=== PATIENT | female | born 1975 | race Caucasian/White ===

== ENCOUNTER → 2019-12-27 18:21 | Outpatient (CLI) | payer BC, SELFPAY ==
--- NOTE | ~2019-12-27 | MM_ITS ---
EXAMINATION: MM screening fred BI w diane HISTORY: Screening mammogram TECHNIQUE: Craniocaudal and mediolateral oblique 3-D tomosynthesis images were obtained and synthetic 2-D images were generated. CAD analysis was submitted and interpreted. COMPARISON: 08/06/2011 bilateral digital screening mammogram BREAST PARENCHYMAL COMPOSITION: The breasts are almost entirely fatty. FINDINGS: There is no evidence of suspicious mass, calcification, or architectural distortion to sugg est malignancy in either breast. There has been no suspicious interval change. IMPRESSION: 1. No mammographic evidence of malignancy. 2. Recommend routine screening mammography in one year. BI-RADS Category 1: Negative Reviewed, dictated and finalized at location A. 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
== END ==
PROVIDERS: PCP Family Medicine; Visit Provider Family Medicine
DX: Z12.31 Encounter for screening mammogram for malignant neoplasm of breast (principal)
CPT/HCPCS: 77063; 77067

== ENCOUNTER 2020-07-29 17:14 | Emergency (ER) | payer OTHER, BC, SELFPAY ==
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
[2020-07-29 17:23] VITALS: BP 140/83; PULSE 100; RESP 18; TEMP 36.5; O2SAT 97
[2020-07-29] MEDS: IBUPROFEN 600 MG TABLET PO (17:33)
[2020-07-29] MEDS: diazePAM 5 MG TABLET PO (17:33)
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
[2020-07-29 19:06] VITALS: BP 130/62; PULSE 78; RESP 18; O2SAT 99
== END 2020-07-29 19:08 | disposition home or self-care (01) ==
PROVIDERS: Emergency Provider Emergency Medicine; PCP Family Medicine
DX: S16.1XXA Strain of muscle, fascia and tendon at neck level, initial encounter (principal); S39.012A Strain of muscle, fascia and tendon of lower back, initial encounter; S86.911A Strain of unspecified muscle(s) and tendon(s) at lower leg level, right leg, initial encounter; S50.01XA Contusion of right elbow, initial encounter; V49.40XA Driver injured in collision with unspecified motor vehicles in traffic accident, initial encounter
CPT/HCPCS: 72125; 72128; 73080; 73590; 99284; A9270

== ENCOUNTER 2022-05-12 09:30 | Outpatient (CLI) | payer BC, SELFPAY ==
--- NOTE | ~2022-05-12 | MM_ITS ---
EXAMINATION: MM screening fred BI w diane HISTORY: Screening TECHNIQUE: Craniocaudal and mediolateral oblique 3-D tomosynthesis images were obtained and synthetic 2-D images were generated. CAD analysis was submitted and interpreted. COMPARISON: No prior mammogram is available for comparison at this institution. BREAST PARENCHYMAL COMPOSITION: Breast composed of scattered areas of fibroglandular density FINDINGS: There is a focal asymmetry lateral aspect of the left breast on CC view, not seen on prior examination. The right breast is stable without evidence for malignancy. IMPRESSION: 1. New left breast asymmetry. 2. Additional mammographic views and possible breast ultrasound are recommended. BI-RADS Category 0: Incomplete: Needs additional imaging evaluation. Reviewed, dictated and finalized at location A. IMPRESSION: 1. New left breast asymmetry. 2. Additional mammographic views and possible breast ultrasound are recommended . BI-RADS Category 0: Incomplete: Needs additional imaging evaluation.
== END 2022-05-12 09:31 | disposition home or self-care (01) ==
LOC: ANHIMG 09:32
PROVIDERS: PCP Family Medicine; Visit Provider Student in an Organized Health Care Education/Training Program
DX: Z12.31 Encounter for screening mammogram for malignant neoplasm of breast (principal); R92.8 Other abnormal and inconclusive findings on diagnostic imaging of breast
CPT/HCPCS: 77063; 77067

== ENCOUNTER 2022-05-17 14:00 | Outpatient (CLI) | payer BC, SELFPAY ==
--- NOTE | ~2022-05-17 | MMUS_ITS ---
EXAMINATION: MM diagnostic fred LT w diane, US breast LT limited HISTORY: New left breast asymmetry reported in the lateral aspect of 05/12/2022 craniocaudal screening view TECHNIQUE: Additional 3-D tomosynthesis images of the left breast were performed and synthetic 2-D im ages were generated. Rolled medial and rolled lateral craniocaudal views. CAD analysis was submitted and interpreted. High resolution targeted upper outer and lower-outer quadrant left breast ultrasound was performed. COMPARISON: 05/12/2022 bilateral screening mammogram FINDINGS: MAMMOGRAPHIC FINDINGS: No reproducible mass is evident on these supplemental mammographic views. The finding on the mammogram is most consistent with superimposed fibroglandular stroma. ULTRASOUND: Real-time imaging of the upper outer and lower-outer quadrants of the left breast confirms no evidenc e of suspicious mass or shadowing. IMPRESSION: 1. No mammographic evidence of malignancy 2. Routine annual mammographic screening is recommended. BI-RADS Category 1: Negative Reviewed, dictated and finalized at location A. IMPRESSION: 1. No mammographic evidence of malignancy 2. Routine annual mammographic screening is recommended. BI-RADS Category 1: Negative
== END 2022-05-17 14:01 | disposition home or self-care (01) ==
LOC: ANHIMG 14:01
PROVIDERS: PCP Family Medicine; Visit Provider Student in an Organized Health Care Education/Training Program
DX: R92.8 Other abnormal and inconclusive findings on diagnostic imaging of breast (principal)
CPT/HCPCS: 76642; 77061; 77065; G0279

== ENCOUNTER 2024-09-27 12:51 | Outpatient (CLI) | payer OTHER, SELFPAY ==
--- NOTE | ~2024-09-27 | MM_ITS ---
EXAMINATION: MM screening fred BI w diane HISTORY: Screening mammogram TECHNIQUE: Craniocaudal and mediolateral oblique 3-D tomosynthesis images were obtained and synthetic 2-D images were generated. CAD analysis was submitted and interpreted. COMPARISON: 05/12/2022, 12/27/2019 BREAST PARENCHYMAL COMPOSITION:Not Dense. The breasts are almost entirely fatty FINDINGS: No suspicious mass, calcification, or architectural distortion are identified in either jason ast to suggest malignancy. There has been no suspicious interval change. IMPRESSION: No mammographic evidence of malignancy. Recommend routine screening mammography in one year. BI-RADS Category 1: Negative Reviewed, dictated and finalized at location .
== END 2024-09-27 12:52 | disposition home or self-care (01) ==
LOC: MICIMG 12:51
PROVIDERS: PCP Family Medicine; Visit Provider Family Medicine
DX: Z12.31 Encounter for screening mammogram for malignant neoplasm of breast (principal)
CPT/HCPCS: 77063; 77067

== ENCOUNTER 2025-07-04 03:35 | Day surgery (SDC) | payer OTHER, SELFPAY ==
[2025-06-19 13:39] VITALS: BMI 29.0
--- OUTSIDE RECORDS SUMMARY | 2025-07-04 03:38 | XMS_ITS | Patient Health Record ---
Author Organization [facility] Address [address] [place], [place] [id number] Care Team Providers Care Estimator Name Role Phone Lenore Yang Unavailable Unavailable Reason For Referral No Information Medications Medication SIG (Take, Route, Frequency, Duration) Notes Start Date End Date Status erythromycin 250 MG Delayed Release Oral Capsule ORAL erythromycin 250 MG Delayed Release Oral CapsuleOriginal Medicationerythromycin 250 MG Delayed Release Oral Capsule *Reorder from [employer] for eRx and Interaction Alerts* 07/26/2016 Active Amoxicillin 500 MG Oral Tablet ORAL amoxicillin 500 MG Oral TabletOriginal Medicationamoxicillin 500 MG Oral Tablet *[facility] and Interaction Alert[facility]* 07/26/2016 Active Plan Of Treatment No Information Insurance Providers Payer Name Payer Address Payer Phone Subscriber Number Group Number Insured Name Patient Relationship to Insured Coverage Start Date Coverage End Date [facility] ([facility]) [address] [place], [place] [phone] [id number] LUDIN FREY Self - patient is the insured
[2025-07-04 09:07] VITALS: BP 115/69; PULSE 90; RESP 15; TEMP 36.1; O2SAT 100; BMI 30.1
[2025-07-04] MEDS: LACTATED RINGERS 1,000 ML 150 ML IV CONT (09:20)
--- NOTE | 2025-07-04 09:37 | WPDANESEPPF ---
Anes - Initial Pre Proc Eval Procedure: Operation Date: 07/04/25 10:00 Proposed Procedures p Screening Colonoscopy - Ollie Sahu MD Date/Time: 07/04/25 09:37 Surgeon: Ollie Sahu MD Pre Op Diagnosis: Screening Patient Data Age: 50 Gender: F Height: 1.7 m Weight: 87.2 kg Last Vital Signs Temp 36.1 C L 07/04/25 09:07 Pulse 90 07/04/25 09:07 Resp 15 07/04/25 09:07 BP 115/69 07/04/25 09:07 Pulse Ox 100 07/04/25 09:07 O2 Del Method Room Air 07/04/25 09:07 Allergies Allergy/AdvReac Type Severity Reaction Status Date / Time amoxicillin Allergy Mild hives Verified 07/04/25 09:06 erythromycin base Allergy Mild hives Verified 07/04/25 09:06 cefdinir AdvReac Intermediate Diarrhea Verified 07/04/25 09:06 Home Medications ?Medication ?Instructions ?Recorded ?Confirmed ?Type cetirizine 10 mg tablet (Zyrtec) 10 mg PO DAILY 01/02/20 06/19/25 History levonorgestrel (Mirena) 1 device intrauterine ONCE 03/11/21 06/19/25 History albuterol sulfate 90 mcg/actuation 1 puff inhalation Q4H PRN 04/07/22 06/19/25 Rx aerosol inhaler (ProAir HFA) shortness of breath or wheezing #8.5 grams albuterol sulfate 0.63 mg/3 mL 0.63 mg (3 mL) inhalation Q4-6H 12/16/23 06/19/25 Rx solution for nebulization PRN shortness of breath or wheezing #75 mL epinephrine 0.3 mg/0.3 mL 0.3 mg IM ONCE PRN bronchodilation 06/19/25 06/19/25 History injection, auto-injector (EpiPen 2-Delvin) fluticasone propionate 50 1 spray intranasal BID PRN nasal 06/19/25 06/19/25 History mcg/actuation nasal congestion spray,suspension (Allergy Relief (fluticasone)) Laboratory Tests 07/04/25 09:11 Beta HCG, Quant Pending Patient hx anesthesia problems: none Family hx anesthesia problems: none Results Review: All pre-operative results and documents have been reviewed as part of the pre-operative evaluation. FOR[facility]LY [facility], [facility] Past Medical History Medical History Lateral epicondylitis of right elbow Weight gain Tinea pedis of both feet Sore throat ASCUS of cervix with negative high risk HPV Encounter for IUD removal and reinsertion IUD surveillance Multiple environmental allergies Asthma, mild Surgical History Surgical History History of lumpectomy History of tonsillectomy and adenoidectomy Family History Family History Mother Family history of malignant neoplasm of thyroid Family history of thyroid disease Hypertension Father Hypertension Grandparent Diabetes mellitus Social History Social History Social History: Smoking status: Never smoker Second hand tobacco smoke exposure: No Alcohol intake: current Alcohol use details: occasionally Substance use: never Substance use type: does not use Do You Feel Safe in your Home?: Yes Lack of Transportation: No Lack of Food: Never True Current Housing: I Have Housing Concerned About Future Housing: No Difficulty Paying Gas/Electric Bills: No Difficulty Paying for Meds: No Currently Unemployed: No Education: Don't Know Difficulty w/ Childcare or Family Care: No Living arrangements: with family Occupation/Education: occupation 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 Gender identity (if verbalized by the patient): Female Sexual Orientation (if Verbalized by the Patient): Straight or Heterosexual Anes - Eval Final PreProcedure Day of Procedure 07/04/25 09:37 Patient weight: overweight Heart: regular rate and rhythm Lungs: clear to auscultation Airway: Mallampati scale class II Neurological: alert and oriented Last oral intake: >/= 8 hours ASA classification: II Emergent: no Anesthetic plan: proceed Anesthesia type and monitoring: general GIVS and standard monitoring Results Review: All pre-operative results and documents have been reviewed as part of the pre-operative evaluation. Informed Consent: The patient's anesthetic plan and its attendant risks and benefits were discussed with the patient/family/POA. Questions were solicited and answers provided to the satisfaction of the patient/family/POA.
--- NOTE | 2025-07-04 09:43 | PM.HPGS ---
History of Present Illness History of Present Illness Consent: Risks, benefits, and alternatives have been discussed and questions answered. Patient agrees to proceed with procedure. Chief complaint: Screening Narrative: Candie Nichole is a 50 year old female here for first screening colonoscopy Review of Systems Review of Systems: All systems reviewed & are unremarkable except as noted in HPI and below PMFSH Past Medical History Medical History Lateral epicondylitis of right elbow Weight gain Tinea pedis of both feet Sore throat ASCUS of cervix with negative high risk HPV Encounter for IUD removal and reinsertion IUD surveillance Multiple environmental allergies Asthma, mild Surgical History Surgical History History of lumpectomy History of tonsillectomy and adenoidectomy Family History Family History Mother Family history of malignant neoplasm of thyroid Family history of thyroid disease Hypertension Father Hypertension Grandparent Diabetes mellitus Social History Social History Social History: Smoking status: Never smoker Second hand tobacco smoke exposure: No Alcohol intake: current Alcohol use details: occasionally Substance use: never Substance use type: does not use Do You Feel Safe in your Home?: Yes Lack of Transportation: No Lack of Food: Never True Current Housing: I Have Housing Concerned About Future Housing: No Difficulty Paying Gas/Electric Bills: No Difficulty Paying for Meds: No Currently Unemployed: No Education: Don't Know Difficulty w/ Childcare or Family Care: No Living arrangements: with family Occupation/Education: occupation 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 Gender identity (if verbalized by the patient): Female Sexual Orientation (if Verbalized by the Patient): Straight or Heterosexual Meds Home Medications and Allergies Home Medications ?Medication ?Instructions ?Recorded ?Confirmed ?Type cetirizine 10 mg tablet (Zyrtec) 10 mg PO DAILY 01/02/20 06/19/25 History levonorgestrel (Mirena) 1 device intrauterine ONCE 03/11/21 06/19/25 History albuterol sulfate 90 mcg/actuation 1 puff inhalation Q4H PRN 04/07/22 06/19/25 Rx aerosol inhaler (ProAir HFA) shortness of breath or wheezing #8.5 grams albuterol sulfate 0.63 mg/3 mL 0.63 mg (3 mL) inhalation Q4-6H 12/16/23 06/19/25 Rx solution for nebulization PRN shortness of breath or wheezing #75 mL epinephrine 0.3 mg/0.3 mL 0.3 mg IM ONCE PRN bronchodilation 06/19/25 06/19/25 History injection, auto-injector (EpiPen 2-Delvin) fluticasone propionate 50 1 spray intranasal BID PRN nasal 06/19/25 06/19/25 History mcg/actuation nasal congestion spray,suspension (Allergy Relief (fluticasone)) Allergies Allergy/AdvReac Type Severity Reaction Status Date / Time amoxicillin Allergy Mild hives Verified 07/04/25 09:06 erythromycin base Allergy Mild hives Verified 07/04/25 09:06 cefdinir AdvReac Intermediate Diarrhea Verified 07/04/25 09:06 Vital Signs Vital Signs - 24 hr 07/04/25 09:07 Temperature 96.9 F L Pulse Rate 90 Respiratory Rate 15 Blood Pressure 115/69 Pulse Oximetry 100 Oxygen Delivery Room Air Exam Const: General: comfortable and no acute distress HENMT: Face/Nose/Sinus: Normal nares present Eyes: General: appearance normal, both eyes and all related structures Neck: Neck: no JVD Resp: Auscultation: clear to auscultation bilaterally Cardio: Rate: regular rate Rhythm: regular rhythm GI: Inspection: non-distended GI Palp: Yes Soft to palpation Skin: General skin exam: normal color Neuro: General: gait normal Speech: normal speech Extrem: General: normal to inspection Psych: Mental Status: mental status grossly normal Assessment and Plan Assessment and plan (1) Colon cancer screening: Code(s): Z12.11 - Encounter for screening for malignant neoplasm of colon Status: Acute Assessment and Plan: colonoscopy
[2025-07-04 09:51] LABS: Beta HCG Quantitative < 2.39 mIU/ML
[2025-07-04 09:57] VITALS: BP 123/104; PULSE 82; RESP 21; O2SAT 98
[2025-07-04 10:07] VITALS: BP 103/73; PULSE 78; RESP 24; O2SAT 98
[2025-07-04] MEDS: ONDANSETRON INJ 4 MG/2 ML VIAL IV PUSH (10:09)
[2025-07-04 10:17] VITALS: BP 108/71; PULSE 72; RESP 20; O2SAT 100
== END 2025-07-04 10:23 | disposition home or self-care (01) ==
PROVIDERS: Anesthesiology; PCP Family Medicine; Referring Provider Student in an Organized Health Care Education/Training Program; Visit Provider Internal Medicine Gastroenterology
PROC: 0DJD8ZZ Inspection of Lower Intestinal Tract, Via Natural or Artificial Opening Endoscopic (ICD-10-PCS; CPT 45378; principal; 2025-07-04 10:00)
DX: Z12.11 Encounter for screening for malignant neoplasm of colon (principal); K64.8 Other hemorrhoids; J45.909 Unspecified asthma, uncomplicated; Z79.51 Long term (current) use of inhaled steroids; Z98.890 Other specified postprocedural states; Z80.8 Family history of malignant neoplasm of other organs or systems
CPT/HCPCS: 45378; 36415; 84702; J2003; J2405; J2704; J7120